=== PATIENT | female | born 1980 | race Caucasian/White ===

== ENCOUNTER 2019-02-23 05:40 | Day surgery (SDC) | payer BC ==
[2019-02-21 16:16] LABS: BASOPHILS 0.2 % (0-2); HEMATOCRIT 37.7 % (36.0-48.0); HEMOGLOBIN 12.8 g/dL (12-16); IMMATURE GRANULOCYTES 0.4 % (0-5); LYMPHOCYTES 20.4 % (15-50); MCH 29.5 pg (26.0-34.0); MCV 86.9 fL (80.0-100.0); MONOCYTES 4.6 % (2-11); NEUTROPHILS 72.4 % (40-80); PLATELET COUNT 307 10x3/uL (130-400); RBC 4.34 10x6/uL (4.00-5.40); RDW 13.3 % (11.5-14.5); WBC 8.9 10x3/uL (4.8-10.8)
[~2019-02-23] VITALS: Ht 170.2 cm; Wt 65.3 kg
[~2019-02-23 05:40] MED LIST: TRI-SPRINTEC TAB PO; WELLBUTRIN SR150 MG PO
[2019-02-23 06:51] VITALS: BP 143/83; Ht 170.2 cm; Wt 65.3 kg
[2019-02-23 07:01] LABS: HCG URINE NEGATIVE (NEGATIVE)
--- NOTE | 2019-02-26 09:18 | OP ---
PATIENT NAME: DAVONTE RIZO MEDICAL RECORD: [id number] :80 LOCATION:[facility] ADMISSION DATE: SURGEON: CONCHA MURCIA MD DATE OF OPERATION: 02/23/2019 PREOPERATIVE DIAGNOSIS: Dysfunctional uterine bleeding. POSTOPERATIVE DIAGNOSIS: Dysfunctional uterine bleeding. PROCEDURE: Dilation and curettage with hysteroscopy. SURGEON: Concha Murcia MD ANESTHESIOLOGIST: Dr. Carlson. ANESTHETIC: General. FINDINGS: Lush endometrium encountered without obvious mass. Cervix is parous. Vaginal vault is unremarkable. SPECIMENS REMOVED: Endometrial curettings. SPECIMEN DISPOSITION: Pathology. ESTIMATED BLOOD LOSS: Minimal. FLUIDS: 700 lactated Ringer's. URINE OUTPUT: Quantity sufficient void prior to this procedure. COMPLICATIONS: None. DRAINS: None. INDICATIONS: The patient is a 38-year-old female with a history of dysfunctional uterine bleeding. Endometrial biopsy reports a polyp with increased gland to stromal ratio. The patient with first-degree relative (twin sister) with breast cancer in her 30s. The patient is consented for dilation and curettage and any indicated procedure. DESCRIPTION OF PROCEDURE: After informed consent was assured, the patient was taken to the operating room where anesthetic was obtained without difficulty. The patient was now prepped and draped in the usual sterile fashion. A speculum was introduced in the vagina. The cervix grasped and dilated to accommodate the diagnostic hysteroscope. This was introduced under direct visualization with visualization of both right and left ostia. The lining was noted to be lush without obvious evidence of mass. Curettage was now performed after the cervix was adequately dilated. A #2 curette was passed gently to the fundus and traction and pressure applied to the uterine wall as the device was withdrawn. Good cry was obtained throughout. Moderate to copious amounts of tissue was returned and sent to pathology. Single tooth tenaculum that was used to steady the cervix during this portion of the procedure was removed and ring forceps applied to the puncture sites to obtain hemostasis. Sponge, lap, needle counts were correct times 2. The patient was awakened and went to the recovery room in stable condition. OPERATIVE REPORT [id number] DAVONTE RIZO TRANSINT:[id number] Voice Confirmation ID: [id number] DOCUMENT ID: [id number] CONCHA MURCIA MD at 0918 CC: [id number] DICTATION DATE: 02/23/19 0817 NIB FINISHER: 02/23/19 1101 [facility] 02/23/19 [facility] [address] [id number]
== END 2019-02-23 09:55 | disposition home or self-care (01) ==
LOC: D.OPS 05:40 → D.PAN 12:00
PROVIDERS: ATTEND Obstetrics & Gynecology
DX: N93.8 Other specified abnormal uterine and vaginal bleeding (principal)